=== PATIENT | male | born 1970 | race Caucasian/White ===

== ENCOUNTER 2019-07-30 19:15 | Emergency (ER) | payer SELFPAY | END 2019-07-30 19:17 | disposition left against medical advice (07) | LOC: ER 08-09 07:38 | PROVIDERS: Emergency Provider Physician Assistant; Family Provider Family Medicine; PCP Family Medicine | DX: R07.9 Chest pain, unspecified (principal); I16.0 Hypertensive urgency; E11.40 Type 2 diabetes mellitus with diabetic neuropathy, unspecified; E11.22 Type 2 diabetes mellitus with diabetic chronic kidney disease; N18.9 Chronic kidney disease, unspecified; E78.5 Hyperlipidemia, unspecified; Z53.21 Procedure and treatment not carried out due to patient leaving prior to being seen by health care provider | CPT/HCPCS: 99281 ==

== ENCOUNTER 2019-07-30 19:16 | Observation (INO) | payer SELFPAY ==
[2019-07-30 19:18] VITALS: BP 183/92; PULSE 92; RESP 16; TEMP 36.3; O2SAT 96; BMI 32.5
--- NOTE | 2019-07-30 19:21 | ED_ITS ---
Entered by Noemy Reina, acting as scribe for Brianna Nolen HPI - General Adult General: Chief complaint: Chest Pain Stated complaint: Hyperglycemia, Chest Pain Time Seen by Provider: 07/30/19 19:21 Source: patient and RN notes reviewed Mode of arrival: EMS Limitations: no limitations History of Present Illness: HPI narrative: 48 yo male presents to ED with complaints of high blood sugar and chest pain. The patient states he has been out of insulin for 1 week, because he has been in town visiting and he ran out. He said his chest pain and pressure began at noon today and has not let up all day. He said he woke feeling crappy this morning and has felt worse throughout the day. He was given Nitro on the ambulance and he began feeling a little better. The patient has a history of HTN, diabetes, chronic kidney disease and neuropathy in his legs. He said his PCP is Dr Villavicencio in [place]. MD complaint: high blood sugar Onset (ago): week(s) (1) Location: chest Radiation: non-radiation Severity: moderate Quality: aching Pain Consistency: intermittent Relieving factors: none Exacerbating factors: none Associated symptoms: Reports chest pain; Deny confusion, diaphoresis, dyspnea, headache(s), nausea, rash or vomiting Treatments prior to arrival: other (Nitro) Review of Systems General: Reports: other (negative unless marked) Const: Denies: fever, chills, body aches, fatigue or diaphoresis Eyes: Denies: change in vision or blurry vision ENMT: Denies: throat pain, painful swallowing, hoarseness, ear pain, ear discharge, Change in hearing or nasal discharge Card: Reports: chest pain Resp: Denies: shortness of breath, productive cough, non-productive cough, wheezing, coughing up blood or chest congestion GI: Denies: abdominal pain, nausea, vomiting, vomiting blood, coffee grounds in vomit, diarrhea, constipation, cramping, blood in stool or black tarry stool : Denies: flank pain, difficulty urinating, painful urination, urinary frequency, urinary urgency, decreased urine ouput, urinary incontinence or blood in urine Musc: Denies: neck pain, back pain, extremity pain, extremity swelling, joint pain, joint swelling, joint warmth or joint stiffness Skin/Breast: Denies: rash, skin tenderness or yellow skin Neuro: Denies: headache, weakness in extremities, changes in sensation, lack of coordination, difficulty walking, dizziness, vertigo or confusion Endo: Denies: excessive thirst, tired all the time, cold intolerance, excessive sweating, flushing or hot flashes Vern/Lymph: Denies: easy bruising, easy bleeding, petechiae or enlarged lymph nodes All/Imm: Denies: hives, throat swelling, tongue swelling, facial swelling or acute wheezing PFSH ED PFSH: Statuses (acute, chronic, etc) shown below reflect problem list status as previously entered and may not be historically accurate Social History Smoking and tobacco status: never smoked Physical Exam Const: COMMON NORMALS: no apparent distress, oriented x3, no limitations, healthy appearing and well nourished EXAM LIMITATIONS: no altered mental status GENERAL APPEARANCE: cooperative, well kempt and well developed ORIENTATION/CONSCIOUSNESS: Yes awake HENMT: COMMON NORMALS: normocephalic, head/scalp atraumatic, hearing grossly normal bilaterally, external ears normal, EAC's normal, external nose normal and moist oral mucous membranes HEAD & SCALP: normal to inspection, normocephalic and atraumatic FACE & SINUS: normal facial exam and face symmetric NOSE: external nose normal and nares normal EXTERNAL EAR: Yes external ears normal EXTERNAL AUDITORY CANAL: EAC's normal MOUTH: oral and palatal mucosa normal and tongue normal Eye: COMMON NORMALS: PERRL, EOMs intact bilaterally, conjunctivae normal and no scleral icterus GENERAL EYE: normal appearance of both eyes and normal light reflex CONJUNCTIVA: Yes conjunctivae normal SCLERA: sclerae normal CORNEA: Yes corneas normal PUPIL: Yes PERRL DIRECT OPHTHALMOSCOPY: Yes normal light reflex Neck/C-Spine: COMMON NORMALS: full ROM, no lymphadenopathy, supple, no meningeal signs and no JVD GENERAL: Yes normal visual inspection and Yes trachea midline CERVICAL SPINE: Yes cervical ROM normal Chest: COMMONS NORMALS: inspection of chest normal and palpation of chest normal Resp: COMMON NORMALS: normal respiratory effort, no retractions, no use of accessory muscles and clear to auscultation bilaterally EFFORT & INSPECTION: Yes able to speak in complete sentences AUSCULTATION: clear to auscultation bilaterally Cardio: COMMON NORMALS: no JVD, regular rate, regular rhythm, S1 normal heart sound, S2 normal heart sound, no gallops, no clicks, no murmurs and no rub JUGULAR VENOUS DISTENTION: no JVD RATE: regular rate RHYTHM: regular rhythm HEART SOUNDS: S1 normal and S2 normal GI: COMMON NORMALS: soft to palpation, non-tender, no hepatosplenomegaly and no masses INSPECTION: Yes normal to inspection PALPATION: Yes soft and Yes no hepatosplenomegaly : COMMON NORMALS: Yes no CVA tenderness BLADDER/KIDNEY EXAM: Yes no CVA tenderness Back/Pelvis: COMMON NORMALS: no CVA tenderness, thoracic and lumbar spine normal to inspection, no thoracic nor lumbar tenderness and thoraco-lumbar ROM normal Extremity: COMMON NORMALS: normal to inspection, full ROM, normal capillary refill, no joint enlargement, no clubbing, cyanosis or edema and no calf tenderness Neuro: COMMON NORMALS: oriented x3, CN's II-XII intact bilaterally, moves all extremities, no focal motor deficits and no sensory deficits noted MENINGEAL SIGNS: Yes no meningeal signs Psych: COMMON NORMALS: mental status grossly normal, thought process normal, cooperative, affect normal, speech normal and activity/motor behavior normal APPEARANCE: Yes well kempt SPEECH: Yes normal speech THOUGHT PROCESS: normal thought process Skin: COMMON NORMALS: no rashes or lesions noted, skin turgor normal, no jaundice, no petechiae and no mottling GENERAL SKIN EXAM: no rashes or lesions noted and turgor normal Course Vital Signs: Vital signs: Vital Signs Temperature 97.4 F L 07/30/19 19:18 Pulse Rate 92 07/30/19 19:18 Respiratory Rate 16 07/30/19 19:18 Blood Pressure 183/92 07/30/19 19:18 Pulse Oximetry 96 07/30/19 19:18 MDM - General Adult MDM Narrative: Medical decision making narrative: Nhan is a 48-year-old male who comes in complaining of chest pain. He is not been here to this hospital before. It is unclear what his baseline EKG, creatinine and troponin are. Because of his ongoing pain we will admit him here to the hospital. The case was reviewed with Dr. Prado and he is in agreement. Lab Data: Attestation: I reviewed the patient's lab results. Labs: Lab Results 07/30/19 07/30/19 07/30/19 Range/Units 19:55 19:55 19:55 WBC 7.8 (4.0-10.0) 10^3/ uL RBC 3.51 L (4.1-5.3) 10^6/u L Hgb 10.5 L (11.7-16.6) g/dL Hct 32.3 L (42.0-52.0) % MCV 92.0 (80-94) fL MCH 29.9 (28.0-34.0) pg MCHC 32.5 (30.0-36.0) g/dL RDW 12.3 (12.1-15.1) % Plt Count 235 (130-400) 10^3/c mm MPV 11.2 H (7.4-10.4) fL Neut % (Auto) 76.6 % Lymph % (Auto) 13.6 % [place] % (Auto) 7.9 % Eos % (Auto) 0.9 % Baso % (Auto) 0.5 % Neut # (Auto) 6.0 (1.8-7.7) 10^3/u L Lymph # (Auto) 1.1 (0.8-4.8) 10^3/u L [place] # (Auto) 0.6 (0.2-0.9) 10^3/u L Eos # (Auto) 0.1 (0.0-0.8) 10^3/u L Baso # (Auto) 0.0 (0.0-0.1) 10^3/u L Nucleated RBC % (a uto) 0 % Nucleated RBCs # 0.0 /100WBC Sodium (136-145) mmol/L Potassium (3.5-5.1) mmol/L Chloride (98-107) mmol/L Carbon Dioxide (22-29) mmol/L Anion Gap (5-19) BUN (6-20) mg/dL Creatinine (0.7-1.2) mg/dL GFR Calculation (90-130) mL/min Glucose (65-115) mg/dL Calcium (8.5-10.5) mg/dL Magnesium 1.9 (1.7-2.3) mg/dL Total Bilirubin (0.15-1.2) mg/dL AST (0-40) U/L ALT (0-41) U/L Alkaline Phosphata se (40-130) IU/L Creatine Kinase 44 (39-308) U/L Troponin T Baselin e (0-15) ng/mL Troponin T 120 Min [place] (0-15) ng/mL Delta Troponin T (0-10) ABS# Total Protein (6.6-8.7) g/dL Albumin (3.5-5.2) g/dL Globulin (1.3-4.6) g/dL Lipase 34 (13-60) U/L Serum Ketones Negative (Negative) 07/30/19 07/30/19 07/30/19 Range/Units 19:55 21:20 21:20 WBC (4.0-10.0) 10^3/ uL RBC (4.1-5.3) 10^6/u L Hgb (11.7-16.6) g/dL Hct (42.0-52.0) % MCV (80-94) fL MCH (28.0-34.0) pg MCHC (30.0-36.0) g/dL RDW (12.1-15.1) % Plt Count (130-400) 10^3/c mm MPV (7.4-10.4) fL Neut % (Auto) % Lymph % (Auto) % [place] % (Auto) % Eos % (Auto) % Baso % (Auto) % Neut # (Auto) (1.8-7.7) 10^3/u L Lymph # (Auto) (0.8-4.8) 10^3/u L [place] # (Auto) (0.2-0.9) 10^3/u L Eos # (Auto) (0.0-0.8) 10^3/u L Baso # (Auto) (0.0-0.1) 10^3/u L Nucleated RBC % (a uto) % Nucleated RBCs # /100WBC Sodium 128 L (136-145) mmol/L Potassium 4.2 (3.5-5.1) mmol/L Chloride 92 L (98-107) mmol/L Carbon Dioxide 25 (22-29) mmol/L Anion Gap 15.2 (5-19) BUN 29 H (6-20) mg/dL Creatinine 2.1 H (0.7-1.2) mg/dL GFR Calculation 33.6 L (90-130) mL/min Glucose 625 H* (65-115) mg/dL Calcium 8.8 (8.5-10.5) mg/dL Magnesium (1.7-2.3) mg/dL Total Bilirubin 0.2 (0.15-1.2) mg/dL AST 15 (0-40) U/L ALT 18 (0-41) U/L Alkaline Phosphata se 72 (40-130) IU/L Creatine Kinase (39-308) U/L Troponin T Baselin e 68 H (0-15) ng/mL Troponin T 120 Min [place] 71.28 H (0-15) ng/mL Delta Troponin T 3.28 (0-10) ABS# Total Protein 6.9 (6.6-8.7) g/dL Albumin 2.8 L (3.5-5.2) g/dL Globulin 4.1 (1.3-4.6) g/dL Lipase (13-60) U/L Serum Ketones (Negative) Imaging Data^: CXR: Attestation: I personally reviewed and interpreted this imaging study as follows: My impression: No acute cardiopulmonary findings. EKG Data^: EKG 1: EKG interpretation date: 07/30/19 EKG interpretation time: 19:22 Interpretation: Normal sinus rhythm at 86 beats a minute, LVH, T wave inversion in aVL, no other acute ST or T wave findings. EKG 2: EKG interpretation date: 07/30/19 EKG interpretation time: 21:28 Interpretation: Normal sinus rhythm at 80 beats a minute, T wave inversions in aVL, no acute ST or T wave findings. Discharge Plan Discharge Patient Disposition: Placed in Observation Clinical Impression: Chest pain Condition: Stable Referrals: Luisito Rothman MD [Primary Care Provider] - Coding Level of Care Code ED Receiving Worker for Chg Fwd Exam Problem Focused The documentation recorded by the Nuno wallace Valerie R, accurately reflects the service I personally performed and the decisions made by Callum calloway Eli N Jul 30, 2019 19:16
--- NOTE | 2019-07-30 19:25 | XR_ITS ---
WS: [id number] CHEST XRAY TECHNIQUE: Portable chest. CLINICAL INFORMATION: cough COMPARISON: None. FINDINGS: Heart: Cardiomegaly. Lungs: Mild chronic emphysematous changes. No acute pulmonary infiltrates. Bones: Normal visualized bony structures. XR/XR chest 1V portable [id number] IMPRESSION: Cardiomegaly. No acute chest findings.
--- NOTE | 2019-07-30 19:27 | ECG_ITS ---
Measurements Intervals [place] Rate: 86 P: 44 PA: 167 QRS: 6 QRSD: 105 T: 92 QT: 356 QTc: [address] & T-WAVE ABNORMALITY No previous ECG available for comparison Electronically Signed On 07-31-2019 9:27:47 INSURANCE EXAMINER by Boy Blood M.D. [id number]
[2019-07-30] MEDS: aspirin 325 mg Tablet PO (19:40)
[2019-07-30 20:11] LABS: Basophils % 0.5 %; Eosinophils # 0.1 10^3/uL (0.0-0.8); Eosinophils % 0.9 %; Hematocrit 32.3 % (42.0-52.0); Hemoglobin 10.5 g/dL (11.7-16.6); Lymphocytes # 1.1 10^3/uL (0.8-4.8); Lymphocytes % 13.6 %; Mean Corpuscular HGB Conc 32.5 g/dL (30.0-36.0); Mean Corpuscular Hemoglobin 29.9 pg (28.0-34.0); Mean Platelet Volume 11.2 fL (7.4-10.4); Monocytes # 0.6 10^3/uL (0.2-0.9); Monocytes % 7.9 %; Neutrophils % 76.6 %; Nucleated Red Blood Cells % 0 %; Platelet Count 235 10^3/cmm (130-400); Red Blood Count 3.51 10^6/uL (4.1-5.3); Red Cell Distribution Width 12.3 % (12.1-15.1); White Blood Count 7.8 10^3/uL (4.0-10.0)
[2019-07-30 20:28] LABS: Ketone (Acetest) Serum Negative (Negative)
[2019-07-30 20:30] LABS: Creatine Phosphokinase 44 U/L (39-308); Lipase 34 U/L (13-60); Magnesium 1.9 mg/dL (1.7-2.3); Troponin(5th) Baseline 68 ng/mL (0-15)
[2019-07-30] MEDS: nitroglycerin 1 gm/inch oint Pkt 1 INCH TOPICAL (20:44)
--- NOTE | 2019-07-30 21:27 | ECG_ITS ---
Measurements Intervals [place] Rate: 80 P: 39 VT: 183 QRS: -3 QRSD: 104 T: 86 QT: 365 QTc: 422 SINUS RHYTHM MODERATE VOLTAGE CRITERIA FOR LVH, CONSIDER NORMAL VARIANT [MEETS CRITERIA IN ONE OF: R(aVL), S(V1), R(V5), R(V5/V6)+S(V1)] NONSPECIFIC T-WAVE ABNORMALITY No previous ECG available for comparison Electronically Signed On 07-31-2019 9:30:21 APPLICATIONS MANAGER by Boy Blood M.D. [id number]
[2019-07-30 21:55] LABS: Troponin 5 2HR 71.28 ng/mL (0-15); Troponin 5 2HR Delta 3.28 ABS# (0-10)
[2019-07-30 22:13] LABS: Alanine Aminotransferase 18 U/L (0-41); Albumin Level 2.8 g/dL (3.5-5.2); Alkaline Phosphatase 72 IU/L (40-130); Anion Gap 15.2 (5-19); Aspartate Amino Transferase 15 U/L (0-40); Blood Urea Nitrogen 29 mg/dL (6-20); Calcium 8.8 mg/dL (8.5-10.5); Carbon Dioxide 25 mmol/L (22-29); Chloride 92 mmol/L (98-107); Globulin 4.1 g/dL (1.3-4.6); Glomerular Filtration Rate 33.6 mL/min (90-130); Potassium 4.2 mmol/L (3.5-5.1); Sodium 128 mmol/L (136-145); Total Bilirubin 0.2 mg/dL (0.15-1.2); Total Protein 6.9 g/dL (6.6-8.7)
[2019-07-30 22:14] LABS: Glucose 625 mg/dL (65-115)
[2019-07-30 23:09] LABS: Glucose Point of Care 465 mg/dL (70-110)
[2019-07-30] MEDS: insulin nph human 100 units/1 mL 15 UNIT SUBCUT (23:23)
--- NOTE | 2019-07-30 23:23 | PM.HP ---
Providers/Chief Complaint Primary Care Provider: Lázaro Rothman Chief Complaint: Hyperglycemia, Chest Pain History of Present Illness Nhan Villalba is a 48 year old male with a past medical history of hypertension, insulin-dependent type 2 diabetes mellitus, diabetic peripheral neuropathy, chronic back pain with sciatica who presents to the emergency room due to chest pain, elevated blood sugars and elevated blood pressures. Patient states that he recently moved to [facility] from [facility], he states that he has been out of his medications for the past week, currently living with friends, currently unemployed, he is working on his Medicaid for disability. Patient states that this morning he had episodes of substernal chest pain, lasting a few minutes, pressure-like, radiating to his back, associate with shortness of breath, no lightheadedness, no dizziness, no nausea, no vomiting, no diaphoresis, has a history of chest pain in the past, has not seen his physician about this, has never had a stress test, no history of CAD or coronary intervention, no history of CABG, does have family history of CAD in his mother and father. Patient states that he does not have any money to pay for his diabetic supplies, has not taken his Lantus and Novolin for the past week. In addition patient states that he is not taking his blood pressure medications for a week. Review of Systems Const: Denies: fever, chills, fatigue or malaise Eyes: Denies: change in vision or blurry vision ENMT: Denies: nasal congestion Card: Reports: chest pain; Denies: palpitations Resp: Denies: shortness of breath, productive cough, non-productive cough or wheezing GI: Denies: abdominal pain, nausea, vomiting, vomiting blood, diarrhea, constipation, blood in stool or black tarry stool : Denies: flank pain, difficulty urinating, painful urination or urinary frequency Musc: Denies: neck pain or back pain Skin/Breast: Denies: rash Neuro: Denies: headache, dizziness or vertigo Psych: Denies: anxiety or depression Endo: Denies: excessive urination or excessive thirst Medications/Allergies Home Medications Medication Instructions Recorded Confirmed Last Taken Type Lantus U-100 Insulin 07/30/19 Unknown History gabapentin PO TID 07/30/19 Unknown History hydrocodone-acetaminophen PO 6XD PRN 07/30/19 Unknown History insulin lispro [Humalog KwikPen unit SUBCUT 07/30/19 Unknown History Insulin] lisinopril PO DAILY 07/30/19 Unknown History Additional Medication Information Additional Medication Information: Lantus 35 units in the morning, 30 units at night Novolin sliding scale Lisinopril 10 mg once daily Glipizide 10 mg once daily Gabapentin 800 3 times daily [place] 10/26/2024 every 4 as needed PFSH Acute PFSH: Statuses (acute, chronic, etc) shown below reflect problem list status as previously entered and may not be historically accurate Medical History (Updated 07/30/19 @ 23:32 by Kvng Prado MD) Type 2 diabetes mellitus (Acute) Surgical History (Updated 07/30/19 @ 23:31 by Kvng Prado MD) Hx of cholecystectomy (Acute) Family History (Updated 07/30/19 @ 23:31 by Kvng Prado MD) Mother CAD (coronary artery disease) Father CAD (coronary artery disease) Social History (Updated 07/30/19 @ 23:31 by Kvng Prado MD) Smoking and tobacco status: never smoked Alcohol intake: never Substance/Drug Use: never Vitals/I&O/Wt Last Vital Signs Temp 97.4 F L 07/30/19 19:18 Pulse 92 07/30/19 19:18 Resp 16 07/30/19 19:18 BP 183/92 07/30/19 19:18 Pulse Ox 96 07/30/19 19:18 Weight last 48 hrs Weight 108.862 kg Physical Exam Const: COMMON NORMALS: no apparent distress and oriented x3 GENERAL APPEARANCE: cooperative and comfortable HENMT: COMMON NORMALS: normocephalic HEAD & SCALP: normocephalic Eye: COMMON NORMALS: PERRL, EOMs intact bilaterally and no papilledema GENERAL EYE: normal appearance of both eyes PUPIL: Yes PERRL DIRECT OPHTHALMOSCOPY: Yes no papilledema Neck/C-Spine: COMMON NORMALS: full ROM, no lymphadenopathy, no JVD and thyroid normal THYROID: thyroid normal Lymph: LYMPHATIC: no lymphadenopathy noted Resp: COMMON NORMALS: normal respiratory effort, no retractions, no use of accessory muscles and clear to auscultation bilaterally AUSCULTATION: clear to auscultation bilaterally Cardio: COMMON NORMALS: no JVD, regular rate, regular rhythm, S1 normal heart sound, S2 normal heart sound, no gallops, no clicks and no murmurs RATE: regular rate RHYTHM: regular rhythm HEART SOUNDS: S1 normal and S2 normal GI: COMMON NORMALS: normal to inspection, nondistended, normoactive bowel sounds, soft to palpation, non-tender and no hepatosplenomegaly PALPATION: Yes soft and Yes no hepatosplenomegaly Extremity: COMMON NORMALS: normal to inspection, full ROM and no pedal edema Neuro: COMMON NORMALS: oriented x3, CN's II-XII intact bilaterally, moves all extremities and no focal motor deficits Psych: COMMON NORMALS: mental status grossly normal, thought process normal and cooperative THOUGHT PROCESS: normal thought process Data : 07/30/19 19:55 07/30/19 21:20 A&P Assessment and plan (1) Chest pain: -EKG no significant ST-T wave changes -No active chest pain -Baseline troponin 60, 120 minutes 71.28, delta of 3.28 -Family history of CAD Plan -ACS protocol aspirin, statin, nitro, Coreg -Trend troponins, serial EKGs -N.p.o. midnight, stress test tomorrow morning -Telemetry monitoring Status: Acute Qualifiers: Chest pain type: precordial pain Qualified Code(s): R07.2 - Precordial pain Code(s): R07.9 - Chest pain, unspecified (2) Type 2 diabetes mellitus: -Consult case management for affordability of medications -Start Levemir 30 units twice daily -Moderate dose sliding scale Status: Acute Code(s): E11.9 - Type 2 diabetes mellitus without complications (3) Hypertensive urgency: Lisinopril 20 mg once daily Coreg PRN labetalol Status: Acute Code(s): I16.0 - Hypertensive urgency (4) Diabetic peripheral neuropathy: Gabapentin Patient states that he is weak, has bilateral extremity pain, neuropathy, PT OT Status: Acute Code(s): E11.42 - Type 2 diabetes mellitus with diabetic polyneuropathy Attestations Medical Necessity Statement*: Patient requires hospitalization, outpatient with observation, for chest pain, hypertensive urgency, hyperglycemia Coding Level of Care Code Acute Appliance Repairer for [facility] Diagnoses Chest pain R07.2 Chest pain type: precordial pain Type 2 diabetes mellitus E11.9 Hypertensive urgency I16.0 Diabetic peripheral neuropathy E11.42
[2019-07-30 23:45] VITALS: BP 151/89; PULSE 82; RESP 16; TEMP 36.9; O2SAT 97
--- NOTE | 2019-07-30 23:48 | ECG_ITS ---
NAME OF STUDY: LEXISCAN SESTAMIBI STRESS TEST INDICATION: Chest Pain; Chest Pain LEXISCAN STRESS TEST ORDERING PHYSICIAN: Kevin CLINICAL INFORMATION: Chest pain INTERPRETATION: 1. The patient was brought to the laboratory where Lexiscan was infused over 20 seconds. The resting blood pressure was 84/51. Maximum blood pressure was 132/68. The resting heart rate was 77 beats per minute. The maximum heart rate is 83 beats per minute. 2. The baseline electrocardiogram reveals sinus rhythm with left ventricular hypertrophy and left atrial abnormality, otherwise normal 3. With Lexiscan infusion, there were no ST segment changes to suggest ischemia. 4. The patient experienced no symptoms or arrhythmias during the examination. CONCLUSION: 1. Unremarkable Lexiscan infusion. 2. Nuclear imaging to follow. Electronically Signed On 07-31-2019 16:51:50 DRIVER WHEELCHAIR by Boy Blood M.D. [id number]
[2019-07-31] VITALS (9 sets, daily range): BP systolic 108–180; BP diastolic 52–102; PULSE 74–85; RESP 10–17; TEMP 36.4–36.8; O2SAT 93–97
--- NOTE | 2019-07-31 | PC.NURSE ---
late entry: Received patient from the ER via stretcher, patient is alert and oriented at this time. Patient denies pain. Oriented patient to the call light system and hospital/room environment. Admission assessment completed per flow sheet, patient declines and refuses use SCD's, teaching provided to patient regarding the importance of SCD's , understanding verbalized. Call light within reach, No needs voiced at this time. Care continued.
[2019-07-31 00:22] LABS: Thyroid Stimulating Hormone 1.35 uIU/mL (0.27-4.20)
[2019-07-31] MEDS: HYDROcodone-acetaminophen 5-325 mg Tablet 1 TAB PO ×4 (00:41→22:43)
[2019-07-31] MEDS: atorvastatin 40 mg Tablet PO ×2 (00:42→08:08)
[2019-07-31] MEDS: dextrose 5%-sod chloride 0.45% 1,000 ML 75 ML IV (00:42)
[2019-07-31] MEDS: enoxaparin 40 mg/0.4 mL Syringe SUBCUT (01:24)
--- NOTE | 2019-07-31 01:27 | ECG_ITS ---
Measurements Intervals [place] Rate: 84 P: 31 IL: 173 QRS: -6 QRSD: 112 T: 91 QT: 375 QTc: 444 SINUS RHYTHM LEFT VENTRICULAR HYPERTROPHY AND ST-T CHANGE [VOLTAGE CRITERIA PLUS ST/T AB ABNORMALITY] No previous ECG available for comparison Electronically Signed On 07-31-2019 9:30:26 WELL DRILLER HELPER by Boy Blood M.D. [id number]
[2019-07-31 01:29] LABS: Basophils % 0.4 %; Eosinophils # 0.2 10^3/uL (0.0-0.8); Eosinophils % 2.2 %; Hematocrit 28.9 % (42.0-52.0); Hemoglobin 9.8 g/dL (11.7-16.6); Lymphocytes # 1.6 10^3/uL (0.8-4.8); Lymphocytes % 23.3 %; Mean Corpuscular HGB Conc 33.9 g/dL (30.0-36.0); Mean Corpuscular Hemoglobin 29.1 pg (28.0-34.0); Mean Corpuscular Volume 85.8 fL (80-94); Mean Platelet Volume 10.7 fL (7.4-10.4); Monocytes # 0.7 10^3/uL (0.2-0.9); Monocytes % 9.5 %; Neutrophils # 4.4 10^3/uL (1.8-7.7); Neutrophils % 64.2 %; Nucleated Red Blood Cells % 0 %; Platelet Count 221 10^3/cmm (130-400); Red Blood Count 3.37 10^6/uL (4.1-5.3); Red Cell Distribution Width 12.1 % (12.1-15.1); White Blood Count 6.9 10^3/uL (4.0-10.0)
[2019-07-31 01:45] LABS: Estmated Average Glucose 346; Hemoglobin A1C 13.7 % (4.0-6.0)
[2019-07-31] MEDS: enoxaparin 80 mg/0.8 mL Syringe 70 MG SUBCUT (02:53)
[2019-07-31 02:59] LABS: Chol HDL Ratio 6.38 mg/dL (1.0-5.00); Cholesterol 185 mg/dL (0-200); HDL Cholesterol 29 mg/dL (60-100); LDL Cholesterol Calculated 113 mg/dL (50-129); Triglycerides 214 mg/dL (0-150)
[2019-07-31 03:18] LABS: Alanine Aminotransferase 17 U/L (0-41); Albumin Level 2.6 g/dL (3.5-5.2); Alkaline Phosphatase 64 IU/L (40-130); Anion Gap 15.8 (5-19); Aspartate Amino Transferase 17 U/L (0-40); Blood Urea Nitrogen 19 mg/dL (6-20); Calcium 9.1 mg/dL (8.5-10.5); Carbon Dioxide 26 mmol/L (22-29); Chloride 98 mmol/L (98-107); Globulin 3.9 g/dL (1.3-4.6); Glomerular Filtration Rate 35.5 mL/min (90-130); Magnesium 1.8 mg/dL (1.7-2.3); Phosphorus 2.7 mg/dL (2.5-4.5); Potassium 3.8 mmol/L (3.5-5.1); Sodium 136 mmol/L (136-145); Total Bilirubin 0.2 mg/dL (0.15-1.2); Total Protein 6.5 g/dL (6.6-8.7)
--- NOTE | 2019-07-31 06:30 | PC.NURSE ---
checked with patient and patient states, I had a diet coke in the ER Patient will need to refrain from caffeine till 12noon or until stress test is done, no caffeine intake since 0000 07/31/19 Call light within reach. Care continued.
--- NOTE | 2019-07-31 06:36 | SUR.PREOP ---
Last caffeine intake around midnight last night. Has to be fasting from all forms of caffeine for 12 hours according to lexiscan guidelines for accuracy of test. Nuclear medicine aware. Plan to stress the patient after noon today.
[2019-07-31 06:42] LABS: Glucose Point of Care 217 mg/dL (70-110)
--- NOTE | 2019-07-31 07:59 | PC.NURSE ---
notified physician, Dr. Brown regarding the patient consuming caffeine prior to 0000 on 07/31/19, no new orders received.
[2019-07-31] MEDS: lisinopril 20 mg Tablet PO (08:09)
[2019-07-31] MEDS: gabapentin 400 mg Capsule 800 MG PO ×3 (08:09→21:11)
[2019-07-31] MEDS: carvedilol 3.125 mg Tablet PO (08:09)
[2019-07-31] MEDS: aspirin 81 mg EC Tablet PO (08:09)
--- NOTE | 2019-07-31 08:56 | PC.OT ---
OT EVALUATION ATTEMPTED. PATIENT IS VERY TIRED DUE TO LATE ADMIT. NURSING RECOMMENDS HOLD UNTIL P.M.
[2019-07-31 09:12] LABS: Glucose 123 mg/dL (65-115)
--- NOTE | 2019-07-31 10:56 | PC.CHAP ---
Pastoral Care Encounter/Spiritual Assessment Type of Contact [] Declined supervisor research kennel visit [] Patient/Family/Request visit [] Outpatient visit [] Follow-up visit [] Physician referral [] Code/Alert [x] Routine visit [] Staff referral [] Actively dying [x] Patient sleeping [] Family support [] [] Out of room [] Palliative care [] [] Receiving care in room [] Pre-surgical visit [] Trauma [] Long length of stay [] ICU visit [] Other: Relational/Emotional Strength [] Patient feels connected with others/family/visitors/staff [] Distress [] Loneliness/isolation [] Abandonment Spirituality of Patient [] Person of Gunjan [] Attends Tenriism of their [place] [] Believes in Prayer [] Reads Bible or Sikhism materials [] There are Spiritual issues to be addressed Grounds Manager Interventions [] Prayer [] Active listening [] Non-anxious presence [] Spiritual/emotional support [] Crisis/trauma care [] Spiritual counseling [] Bereavement support [] Provided bereavement packet [] Provided Bible/devotional materials [] Provided toy/stuffed animal, coloring book to patient or family member [] Provided Communion [] Anointing/[place] [] Salvation [] Completed spiritual assessment [] Other: Impact on Illness or Injury [] Angry [] Fearful [] Anxious [] Often cries [] Exhaustion [] Unable to work [] Unable to attend catholic [] Unable to walk/stand [] Unable to read [] Unable to drive [] Unable to eat/drink [] Unable to sleep [] Unable to be with family [] Patient intubated [] Other: Summary Time spent with patient
--- NOTE | 2019-07-31 11:00 | PM.PN ---
Subjective Subjective: Interval history: Patient denies chest pain or shortness of breath but reports back pain, thoracic and low back which is chronic. Patient reports that he lost his insurance and was unable to afford medications. Apparently patient's stress test was postponed because he had caffeinated drink at 1230 to 1:00 this morning Vitals/I&O/Wt Last Vital Signs Temp 97.9 F 07/31/19 07:29 Pulse 80 07/31/19 07:29 Resp 16 07/31/19 07:29 BP 177/94 07/31/19 07:29 Pulse Ox 93 07/31/19 07:29 07/30/19 07/31/19 07/31/19 22:59 06:59 14:59 Intake Total 100 / 100 240 / 240 Balance 100 / 100 240 / 240 Weight last 48 hrs Weight 108.862 kg Physical Exam Const: COMMON NORMALS: no apparent distress and oriented x3 Resp: COMMON NORMALS: normal respiratory effort and clear to auscultation bilaterally AUSCULTATION: clear to auscultation bilaterally Cardio: COMMON NORMALS: regular rate, regular rhythm and S2 normal heart sound RATE: regular rate RHYTHM: regular rhythm HEART SOUNDS: S2 normal OTHER: No lower extremity edema GI: COMMON NORMALS: normal to inspection, nondistended, normoactive bowel sounds, soft to palpation and non-tender PALPATION: Yes soft Neuro: COMMON NORMALS: oriented x3 and no focal motor deficits Data : 07/31/19 01:20 07/31/19 01:20 A&P Assessment and plan (1) Chest pain: -EKG no significant ST-T wave changes -No active chest pain -Baseline troponin 60, 120 minutes 71.28, delta of 3.28 -Family history of CAD Plan -ACS protocol aspirin, statin, nitro, Coreg -Trend troponins, serial EKGs -N.p.o. midnight, stress test tomorrow morning -Telemetry monitoring Status: Acute Qualifiers: Chest pain type: precordial pain Qualified Code(s): R07.2 - Precordial pain Code(s): R07.9 - Chest pain, unspecified (2) Type 2 diabetes mellitus: -Consult case management for affordability of medications -Start Levemir 30 units twice daily -Moderate dose sliding scale Status: Acute Code(s): E11.9 - Type 2 diabetes mellitus without complications (3) Hypertensive urgency: Lisinopril 20 mg once daily Coreg PRN labetalol Status: Acute Code(s): I16.0 - Hypertensive urgency (4) Diabetic peripheral neuropathy: Gabapentin Patient states that he is weak, has bilateral extremity pain, neuropathy, PT OT Status: Acute Code(s): E11.42 - Type 2 diabetes mellitus with diabetic polyneuropathy Additional A&P Information Discussed case with social workers who will see patient to assist with medications. As patient continues to have elevated blood pressure will start on Imdur and increase Coreg to 6.25 twice daily. Discussed with Dr. Blood who will see patient in consultation as he may require further evaluation with cath. Dr. Blood wants to continue with stress test for now. Attestations Medical Necessity Statement*: Patient with significant risk factors presents with chest pain requiring close inpatient monitoring treatment and evaluation. 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
[2019-07-31 11:28] LABS: Glucose Point of Care 286 mg/dL (70-110)
--- NOTE | 2019-07-31 11:36 | P.CONIM_ITS ---
Providers/Reason For Consult Consulting Physican/Specialty*: Cardiovascular diseases Reason for Consult*: Chest pain, abnormal troponin Attending Physician: Marquis Brown MD Primary Care Provider: Lázaro Rothman History of Present Illness History of Present Illness Nhan Villalba is a 48 year old male who is noncompliant. He has a number of risk factors for heart disease primarily diabetes, hypertension and dyslipidemia. He apparently moved here recently from somewhere near [place]. He has not taken his medicines for at least a week. He came to the emergency room by ambulance with chest pain. This is a fairly atypical pain described as a pain in his chest that goes through to his back. He describes shortness of breath but no other symptoms. The pain lasted for several minutes. Upon his arrival he was hypertensive blood pressure 183/92. His blood sugar was 625. His troponin is minimally elevated as it pertains to the delta. He was scheduled for stress test but last night had a caffeinated beverage and so it has been delayed. Currently he is in the nuclear medicine lab getting his resting pictures. Patient is free of pain at this point. Review of Systems General: Reports: 10 or more systems reviewed and unremarkable except in HPI and below Meds/Allergies Home Medications and Allergies Home Medications Medication Instructions Recorded Confirmed Type Lantus U-100 Insulin 35 unit SUBCUT DAILY 07/30/19 07/30/19 History gabapentin 800 mg PO TID 07/30/19 07/30/19 History hydrocodone-acetaminophen 1 - 2 tab PO 6XD PRN 07/30/19 07/30/19 History insulin lispro [Humalog KwikPen 1 unit SUBCUT TID 07/30/19 07/30/19 History Insulin] lisinopril 10 mg PO DAILY 07/30/19 07/30/19 History Allergies Allergy/AdvReac Type Severity Reaction Status Date / Time metformin Allergy ADR-Abdominal Verified 07/30/19 23:47 Pain Current Medications Current Medications Generic Name Dose Route Start Last Admin Trade Name Freq PRN Reason Stop Dose Admin Hydrocodone Bitart/Acetaminophen 1 tab 07/30/19 23:48 07/31/19 08:11 [place] 5-325 Mg PO 1 tab Q6H PRN Administration pain Aspirin 81 mg 07/31/19 09:00 07/31/19 08:09 Aspirin Ec PO 81 mg DAILY BOO Administration Atorvastatin Calcium 40 mg 07/30/19 23:48 07/31/19 08:08 Lipitor PO 40 mg DAILY BOO Administration Enoxaparin Sodium 110 mg 07/31/19 02:00 07/31/19 02:14 Lovenox SUBCUT Not Given Q12H BOO Gabapentin 800 mg 07/31/19 09:00 07/31/19 08:09 Neurontin PO 800 mg TID BOO Administration Dextrose/Sodium Chloride 1,000 mls @ 75 mls/hr 07/30/19 23:48 07/31/19 00:42 Dextrose 5%-Sod Chloride 0.45% IV 75 mls/hr .[id number] BOO Administration Insulin Aspart 0 unit 07/31/19 08:00 07/31/19 08:06 Novolog SUBCUT 6 unit TIDWM BOO Administration Protocol Insulin Detemir 30 unit 07/31/19 09:00 07/31/19 08:29 Levemir SUBCUT 30 unit BID BOO Administration Lisinopril 20 mg 07/31/19 09:00 07/31/19 08:09 Prinivil PO 20 mg DAILY BOO Administration PFSH Acute PFSH: Statuses (acute, chronic, etc) shown below reflect problem list status as previously entered and may not be historically accurate Medical History (Updated 07/31/19 @ 11:42 by Boy Blood MD) Anemia (Acute) Chronic back pain (Acute) Dyslipidemia (Acute) Noncompliance (Acute) Type 2 diabetes mellitus (Acute) Surgical History (Updated 07/30/19 @ 23:31 by Kvng Prado MD) Hx of cholecystectomy (Acute) Family History (Updated 07/30/19 @ 23:31 by Kvng Prado MD) Mother CAD (coronary artery disease) Father CAD (coronary artery disease) Social History (Updated 07/31/19 @ 11:42 by Boy Blood MD) Smoking and tobacco status: never smoked Alcohol intake: never Substance/Drug Use: never Current occupational status: unemployed Additional social history: Patient is making an attempt to get disability. Vitals/I&O/Wt Last Vital Signs Temp 97.8 F 07/31/19 11:11 Pulse 76 07/31/19 11:11 Resp 17 07/31/19 11:11 BP 133/72 07/31/19 11:11 Pulse Ox 96 07/31/19 11:11 0207/31/19 07/31/19 22:59 06:59 14:59 Intake Total 100 / 100 240 / 240 Balance 100 / 100 240 / 240 Weight last 48 hrs Weight 240 lb Physical Exam Narrative: EXAM NARRATIVE: GENERAL: Comfortable at rest HEENT: Exam within normal limits. NECK: Supple without jugular vein distention. The carotid upstroke is normal without bruits. BACK: Exam normal. LUNGS: Clear. HEART: Regular rate and rhythm. ABDOMEN: Benign without organomegaly or tenderness. EXTREMITIES: No edema. NEUROLOGIC: Exam normal. SKIN: Unremarkable. Data Other Data: Other data: First troponin 68. Second troponin 80.6. Third troponin 71.2 8. EKG reveals sinus rhythm with nonspecific ST and T wave changes in leads I and L. There is LVH. The chest x-ray is unremarkable. A&P Assessment and plan (1) Dyslipidemia: Status: Acute Code(s): E78.5 - Hyperlipidemia, unspecified (2) Diabetic peripheral neuropathy: Status: Acute Code(s): E11.42 - Type 2 diabetes mellitus with diabetic polyneuropathy (3) Hypertensive urgency: Status: Acute Code(s): I16.0 - Hypertensive urgency (4) Type 2 diabetes mellitus: Status: Acute Code(s): E11.9 - Type 2 diabetes mellitus without complications (5) Chest pain: Status: Acute Qualifiers: Chest pain type: precordial pain Qualified Code(s): R07.2 - Precordial pain Code(s): R07.9 - Chest pain, unspecified Additional A&P Information I do not see anything on the EKG that leads me to believe this is unstable. It is difficult to tell whether these troponins are truly insurance verification representative of unstable angina or an acute ischemic syndrome. Chest pain is not typical. He does have risk factors however. I think we need to complete the stress test to stratify his risk and then proceed from that point forward. I have spoken to nuclear medicine and they will get the stress portion this afternoon. Consult Attestations Medical Necessity Statement: Not applicable Time Spent in Patient Care: Greater than 35 minutes Coding Level of Care Code Acute Patient Svcs Mgr for [facility] Fwd History Detailed Exam Detailed Medical Decision Making Moderate Complexity Diagnoses Dyslipidemia E78.5 Diabetic peripheral neuropathy E11.42 Hypertensive urgency I16.0 Type 2 diabetes mellitus E11.9 Chest pain R07.2 Chest pain type: precordial pain Time Spent (min) 45
[2019-07-31] MEDS: isosorbide mononitrate ER 30 mg Tablet PO (12:12)
--- NOTE | 2019-07-31 13:30 | SUR.PREOP ---
Patient reports no pain or discomfort prior to the start of the procedure.
[2019-07-31] MEDS: regadenoson 0.4 Mg/5 ml Syringe IVP (13:35)
[2019-07-31] MEDS: aminophylline 25 mg/mL SDV 10 mL IVP (13:37)
--- NOTE | 2019-07-31 13:45 | PC.OT ---
OT EVALUATION ATTEMPTED THIS A.M. HOWEVER, NURSING STATES THAT PATIENT IS VERY TIRED DUE TO LATE ADMIT AND REQUESTS P.M. EVALUATION. OT EVALUATION ATTEMPTED THIS P.M. HOWEVER, PATIENT IS CURRENTLY AT STRESS TEST. WILL ATTEMPT AGAIN TOMORROW.
[2019-07-31] MEDS: enoxaparin 120 mg/0.8 mL Syringe 110 MG SUBCUT (15:31)
[2019-07-31 16:41] LABS: Glucose Point of Care 181 mg/dL (70-110)
[2019-07-31 20:49] LABS: Glucose Point of Care 254 mg/dL (70-110)
[2019-07-31] MEDS: carvedilol 6.25 mg Tablet PO (21:12)
--- NOTE | 2019-07-31 23:48 | NMCV_ITS ---
NM solomon perf SPECT r/s* [id number] Nhan Villalba Age: 48 Gender: M : 1970 Exam Date: 07/31/2019 11:13 Ordering Phys: Kvng Prado MD Technologist: BUZZ Razo Exam Location: [facility] Indications: Chest pain STRESS TEST Please see separate stress test report in [facility] for full findings IMAGE PROTOCOL Rest/Stress 1 Lexiscan Day Radiopharmaceutical Dose (mCi) Administration Site Administered by Rest: Tc-99m 10.8 IV BUZZ Razo Sestamibi Stress:Tc-99m 33.0 IV BUZZ Razo Sestamibi Rest: 31-Jul-2019 60 Discovery 630 Stress: 31-Jul-2019 45 Discovery 630 0.4mg Lexiscan. Images obtained in supine and prone position. SPECT RESULTS Technical Quality: Good Raw Data Analysis: Normal Image Corrections: Patient motion artifact - motion correction applied stress supine only Summed Stress Score: 0 Summed Rest Score: 0 Summed Difference Score: 0 PERFUSION FINDINGS Small area of persistently decreased tracer uptake noted in basal to mid inferior wall which may represent old myocardial infarction versus artifact. FUNCTIONAL RESULTS (calculated via Gated SPECT) Stress Image LV EF (%): 27 Stress EDV (mL):128 TID: 0.86 Stress ESV (mL):93 Rest Image LV EF (%): 27 FUNCTIONAL FINDINGS: Global hypokinesis IMPRESSIONS Small area of old myocardial infarction versus artifact noted in basal to mid inferior wall. This study is negative for ischemia. EKG segment will be document separately. Cecilio Garner MD (Electronically Signed) Final Date: 31 July 2019 15:14 S
[2019-08-01] VITALS (54 sets, daily range): BP systolic 105–156; BP diastolic 58–76; PULSE 66–86; RESP 9–19; TEMP 36.6–36.8; O2SAT 95–98
[2019-08-01] MEDS: enoxaparin 120 mg/0.8 mL Syringe 110 MG SUBCUT (02:28)
[2019-08-01 03:48] LABS: Basophils % 0.3 %; Eosinophils # 0.2 10^3/uL (0.0-0.8); Hematocrit 29.8 % (42.0-52.0); Hemoglobin 9.8 g/dL (11.7-16.6); Lymphocytes # 1.8 10^3/uL (0.8-4.8); Mean Corpuscular HGB Conc 32.9 g/dL (30.0-36.0); Mean Corpuscular Volume 91.1 fL (80-94); Monocytes # 0.5 10^3/uL (0.2-0.9); Monocytes % 8.1 %; Neutrophils # 3.5 10^3/uL (1.8-7.7); Neutrophils % 58.1 %; Nucleated Red Blood Cells % 0 %; Platelet Count 196 10^3/cmm (130-400); Red Blood Count 3.27 10^6/uL (4.1-5.3); Red Cell Distribution Width 12.3 % (12.1-15.1); White Blood Count 6.1 10^3/uL (4.0-10.0)
[2019-08-01 04:08] LABS: Alanine Aminotransferase 15 U/L (0-41); Albumin Level 2.5 g/dL (3.5-5.2); Alkaline Phosphatase 56 IU/L (40-130); Anion Gap 9.9 (5-19); Aspartate Amino Transferase 17 U/L (0-40); Blood Urea Nitrogen 21 mg/dL (6-20); Calcium 8.6 mg/dL (8.5-10.5); Carbon Dioxide 28 mmol/L (22-29); Chloride 99 mmol/L (98-107); Globulin 3.4 g/dL (1.3-4.6); Glomerular Filtration Rate 33.6 mL/min (90-130); Glucose 242 mg/dL (65-115); Magnesium 1.9 mg/dL (1.7-2.3); Potassium 3.9 mmol/L (3.5-5.1); Sodium 133 mmol/L (136-145); Total Bilirubin 0.2 mg/dL (0.15-1.2); Total Protein 5.9 g/dL (6.6-8.7)
[2019-08-01 06:31] LABS: Glucose Point of Care 175 mg/dL (70-110)
--- NOTE | 2019-08-01 06:54 | P.PN_ITS ---
Subjective Subjective: Interval history: Nhan has had an uneventful night. He told me today that he still lives south of [place] and has not moved over here. He was here visiting. His stress test showed no ischemia. His creatinine remains above 2. His glomerular filtration rate is 33. He has not had any further chest discomfort. His blood pressure has been stable although this morning it has gone up somewhat. He remains on low-dose aspirin, statin, RANDEE inhibitor, Coreg and Imdur. He is on full dose Lovenox. Medications: Reviewed: Yes Vitals/I&O/Wt Last Vital Signs Temp 98.1 F 08/01/19 06:10 Pulse 74 08/01/19 06:20 Resp 13 08/01/19 06:10 BP 114/58 08/01/19 06:25 Pulse Ox 96 07/31/19 23:45 07/31/19 07/31/19 08/01/19 14:59 22:59 06:59 Intake Total 480 / 480 480 / 960 Output Total 1000 / 1000 Balance 480 / 480 480 / 960 -1000 / -40 Weight last 48 hrs Weight 240 lb Physical Exam Narrative: EXAM NARRATIVE: GENERAL: In general he looks and feels well this morning HEENT: Exam within normal limits. NECK: Supple without jugular vein distention. The carotid upstroke is normal without bruits. BACK: Exam normal. LUNGS: Clear. HEART: Regular rate and rhythm. ABDOMEN: Benign without organomegaly or tenderness. EXTREMITIES: No edema. NEUROLOGIC: Exam normal. SKIN: Unremarkable. Data : 08/01/19 03:13 08/01/19 03:13 A&P Assessment and plan (1) Chronic kidney disease (CKD): Status: Acute Code(s): N18.9 - Chronic kidney disease, unspecified (2) Dyslipidemia: Status: Acute Code(s): E78.5 - Hyperlipidemia, unspecified (3) Diabetic peripheral neuropathy: Status: Acute Code(s): E11.42 - Type 2 diabetes mellitus with diabetic polyneuropathy (4) Hypertensive urgency: Status: Acute Code(s): I16.0 - Hypertensive urgency (5) Type 2 diabetes mellitus: Status: Acute Code(s): E11.9 - Type 2 diabetes mellitus without complications (6) Chest pain: Status: Acute Qualifiers: Chest pain type: precordial pain Qualified Code(s): R07.2 - Precordial pain Code(s): R07.9 - Chest pain, unspecified Additional A&P Information I do not think he needs any further cardiac testing. Angiography would not be indicated given his negative stress test and his glomerular filtration rate near 30 mL/min. I think he can be treated medically for his underlying illnesses. He should be able to go home today. He told me that his mother has to come from [facility] to pick him up. I would discontinue the Lovenox. He should go home on low-dose aspirin, statin, RANDEE inhibitor and Coreg. I do not have a strong feeling about the Imdur. I would probably leave it off. He can follow-up with his physicians in the [place] area. 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
[2019-08-01] MEDS: atorvastatin 40 mg Tablet PO (08:11)
[2019-08-01] MEDS: carvedilol 6.25 mg Tablet PO ×2 (08:11→22:02)
[2019-08-01] MEDS: aspirin 81 mg EC Tablet PO (08:11)
[2019-08-01] MEDS: isosorbide mononitrate ER 30 mg Tablet PO (08:12)
[2019-08-01] MEDS: gabapentin 400 mg Capsule 800 MG PO ×3 (08:12→22:01)
[2019-08-01] MEDS: lisinopril 20 mg Tablet PO (08:14)
[2019-08-01] MEDS: HYDROcodone-acetaminophen 5-325 mg Tablet 1 TAB PO ×3 (08:28→22:02)
--- NOTE | 2019-08-01 08:48 | P.PN_ITS ---
Subjective Subjective: Interval history: No acute events overnight. On examination this morning patient denies chest pain or shortness of breath, nausea, vomiting, palpitations but reports back pain, thoracic and low back which is chronic. Medications: Medication Review Details: Lantus 35 units in the morning, 30 units at night Novolin sliding scale Lisinopril 10 mg once daily Glipizide 10 mg once daily Gabapentin 800 3 times daily [place] 10/26/2024 every 4 as needed Vitals/I&O/Wt Last Vital Signs Temp 98.3 F 08/01/19 07:29 Pulse 74 08/01/19 07:29 Resp 18 08/01/19 07:29 BP 142/75 08/01/19 07:29 Pulse Ox 95 08/01/19 07:29 07/31/19 08/01/19 08/01/19 22:59 06:59 14:59 Intake Total 480 / 960 Output Total 1000 / 1000 Balance 480 / 960 -1000 / -40 Weight last 48 hrs Weight 108.862 kg Physical Exam Narrative: EXAM NARRATIVE: General: No acute distress, AO x3 HEENT: PERRLA, pupils bilaterally equal and reactive Chest: Normal vesicular breath sounds, no added sounds, equal good air entry bilaterally CVS: S1-S2 regular, no murmurs, no tachycardia, no gallops, no rubs Abdomen: Soft, nontender, no organomegaly, bowel sounds present Neuro: No focal deficits, no facial deformity, AO x3, power 5/5 in all limbs Data : 08/01/19 03:13 08/01/19 03:13 A&P Assessment and plan (1) Chest pain: Stress test done yesterday not suggestive of active ischemia. Cardiology recommendations appreciated. No need for any active further cardiology work-up. Continue with aspirin, statin, beta-shankar, RANDEE inhibitor. Status: Acute Qualifiers: Chest pain type: precordial pain Qualified Code(s): R07.2 - Precordial pain Code(s): R07.9 - Chest pain, unspecified (2) Type 2 diabetes mellitus: -Patient getting Levemir 30 mill units twice daily. Overall patient had received around 22 units of insulin in last 24 hours over the Levemir. Patient recently lost his job and insurance so affordability has been issue. We will consult case management for affordability of medications. Status: Acute Code(s): E11.9 - Type 2 diabetes mellitus without complications (3) Hypertensive urgency: Status: Acute Code(s): I16.0 - Hypertensive urgency (4) Diabetic peripheral neuropathy: Continue with gabapentin 800 mg 3 times daily PT/OT Status: Acute Code(s): E11.42 - Type 2 diabetes mellitus with diabetic polyneuropathy Additional A&P Information Hypertension: Patient's blood pressure yesterday after Imdur was on lower side. Case discussed with Dr. Blood. We will stop Imdur. Will decrease lisinopril to 10 mg daily from 20 mg. Continue with current dose of carvedilol. We will monitor blood pressures and for next 24 hours given the adjusted medications. Full code Lovenox at DVT prophylaxis dose. Cardiac carbohydrate consistent diet. 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
[2019-08-01 11:29] LABS: Glucose Point of Care 234 mg/dL (70-110)
[2019-08-01 16:19] LABS: Glucose Point of Care 167 mg/dL (70-110)
[2019-08-01] MEDS: enoxaparin 40 mg/0.4 mL Syringe SUBCUT (17:48)
[2019-08-01 21:23] LABS: Glucose Point of Care 206 mg/dL (70-110)
[2019-08-02] VITALS: BP 143/72; PULSE 76; RESP 16; TEMP 36.8; O2SAT 96
[2019-08-02 03:29] LABS: Basophils % 0.5 %; Eosinophils # 0.2 10^3/uL (0.0-0.8); Eosinophils % 3.1 %; Hematocrit 28.8 % (42.0-52.0); Hemoglobin 9.3 g/dL (11.7-16.6); Lymphocytes # 1.9 10^3/uL (0.8-4.8); Mean Corpuscular HGB Conc 32.3 g/dL (30.0-36.0); Mean Corpuscular Hemoglobin 28.9 pg (28.0-34.0); Mean Corpuscular Volume 89.4 fL (80-94); Mean Platelet Volume 11.4 fL (7.4-10.4); Monocytes # 0.5 10^3/uL (0.2-0.9); Monocytes % 7.1 %; Neutrophils # 3.8 10^3/uL (1.8-7.7); Nucleated Red Blood Cells % 0 %; Platelet Count 188 10^3/cmm (130-400); Red Blood Count 3.22 10^6/uL (4.1-5.3); Red Cell Distribution Width 12.5 % (12.1-15.1); White Blood Count 6.4 10^3/uL (4.0-10.0)
[2019-08-02 03:51] LABS: Alanine Aminotransferase 15 U/L (0-41); Albumin Level 2.3 g/dL (3.5-5.2); Alkaline Phosphatase 50 IU/L (40-130); Anion Gap 12.1 (5-19); Aspartate Amino Transferase 20 U/L (0-40); Blood Urea Nitrogen 17 mg/dL (6-20); Calcium 8.9 mg/dL (8.5-10.5); Carbon Dioxide 27 mmol/L (22-29); Chloride 98 mmol/L (98-107); Globulin 3.4 g/dL (1.3-4.6); Glomerular Filtration Rate 37.7 mL/min (90-130); Glucose 226 mg/dL (65-115); Magnesium 1.9 mg/dL (1.7-2.3); Phosphorus 4.2 mg/dL (2.5-4.5); Potassium 4.1 mmol/L (3.5-5.1); Sodium 133 mmol/L (136-145); Total Bilirubin 0.2 mg/dL (0.15-1.2); Total Protein 5.7 g/dL (6.6-8.7)
[2019-08-02 04:00] VITALS: BP 149/77; PULSE 65; RESP 12; TEMP 36.7; O2SAT 97
[2019-08-02] MEDS: HYDROcodone-acetaminophen 5-325 mg Tablet 1 TAB PO ×3 (04:03→16:11)
[2019-08-02 06:56] LABS: Glucose Point of Care 184 mg/dL (70-110)
[2019-08-02 07:28] VITALS: BP 165/97; PULSE 66; RESP 17; TEMP 36.8; O2SAT 94
[2019-08-02] MEDS: aspirin 81 mg EC Tablet PO (08:57)
[2019-08-02] MEDS: carvedilol 6.25 mg Tablet PO (08:57)
[2019-08-02] MEDS: atorvastatin 40 mg Tablet PO (08:57)
[2019-08-02] MEDS: gabapentin 400 mg Capsule 800 MG PO ×2 (08:58→14:36)
--- NOTE | 2019-08-02 09:56 | PM.DCS ---
Discharge Providers Date of Admission: 07/30/19 23:21 Date of Discharge: Date of Discharge: August 02, 2019 Attending Provider at Admission: Kvng Prado MD Attending Provider at Discharge: Yong Yepez MD Primary Care Provider: Lázaro Rothman Diagnoses at Discharge Discharge Diagnosis (1) Chest pain: Status: Acute Qualifiers: Chest pain type: precordial pain Qualified Code(s): R07.2 - Precordial pain (2) Type 2 diabetes mellitus: Status: Acute (3) Hypertensive urgency: Status: Acute (4) Diabetic peripheral neuropathy: Status: Acute Reason for Visit Reason for Visit: Reason For Visit: Chest Pain Hospital Course Discharge Summary: Nhan Villalba is a 48 year old male with a past medical history of hypertension, insulin-dependent type 2 diabetes mellitus, diabetic peripheral neuropathy, chronic back pain with sciatica who presented to the emergency room on 07/30/19 due to chest pain, elevated blood sugars and elevated blood pressures. Patient states that this morning he had episodes of substernal chest pain, lasting a few minutes, pressure-like, radiating to his back, associate with shortness of breath, no lightheadedness, no dizziness, no nausea, no vomiting, no diaphoresis, has a history of chest pain in the past, has not seen his physician about this, has never had a stress test, no history of CAD or coronary intervention, no history of CABG, does have family history of CAD in his mother and father. Patient states that he recently moved to [facility] from [facility], he states that he has been out of his medications for the past week, currently living with friends, currently unemployed, he is working on his Medicaid for disability. Due to severe family history patient was admitted to cardiac stepdown unit for chest pain rule out. Cardiac stress test Lexiscan on July 30 which was not suggestive of any active ischemia. As patient has not been on any antidiabetic or antihypertensive medications prior to admission due to financial problems his medications were readjusted. information services vice president were consulted to help with medication. Patient was started on RANDEE inhibitor and beta-shankar for blood pressures. His insulins were adjusted for his blood sugars. He responded well to the treatment. Medications were provided to him by [facility] pharmacy and I have also prescribed 2 refills from [facility] pharmacies. Patient is to be followed up with his primary care physician within next 7 to 10 days and has been discharged in hemodynamically stable condition. Physical Exam Narrative: EXAM NARRATIVE: General: No acute distress, AO x3 HEENT: PERRLA, pupils bilaterally equal and reactive Chest: Normal vesicular breath sounds, no added sounds, equal good air entry bilaterally CVS: S1-S2 regular, no murmurs, no tachycardia, no gallops, no rubs Abdomen: Soft, nontender, no organomegaly, bowel sounds present Neuro: No focal deficits, no facial deformity, AO x3, power 5/5 in all limbs Discharge Data Data Completed and Pending: Completed Studies During Hospitalization Category Date Time Status Sestamibi Stress Test Request Routi ne Exams 07/30/19 23:48 Completed XR chest 1V jackie ble [id number] Stat Exams 07/30/19 19:25 Completed NM solomon perf SPECT r/s* [id number] Routin e Nuc Med 07/31/19 23:48 Completed Pending at discharge Category Date Time Status Arterial Blood Ga s W/O Coox Routine Lab 07/30/19 19:26 Ordered Labs from last 24 hours 08/02/19 08/02/19 08/02/19 06:47 02:54 02:54 WBC 6.4 RBC 3.22 L Hgb 9.3 L Hct 28.8 L MCV 89.4 MCH 28.9 MCHC 32.3 RDW 12.5 Plt Count 188 MPV 11.4 H Neut % (Auto) 60.0 Lymph % (Auto) 29.0 [place] % (Auto) 7.1 Eos % (Auto) 3.1 Baso % (Auto) 0.5 Neut # (Auto) 3.8 Lymph # (Auto) 1.9 [place] # (Auto) 0.5 Eos # (Auto) 0.2 Baso # (Auto) 0.0 Nucleated RBC % (a uto) 0 Nucleated RBCs # 0.0 Sodium 133 L Potassium 4.1 Chloride 98 Carbon Dioxide 27 Anion Gap 12.1 BUN 17 Creatinine 1.9 H GFR Calculation 37.7 L Glucose 226 H POC Glucose 184 Calcium 8.9 Phosphorus 4.2 Magnesium 1.9 Total Bilirubin 0.2 AST 20 ALT 15 Alkaline Phosphata se 50 Total Protein 5.7 L Albumin 2.3 L Globulin 3.4 08/01/19 08/01/19 08/01/19 20:54 15:48 11:12 WBC RBC Hgb Hct MCV MCH MCHC RDW Plt Count MPV Neut % (Auto) Lymph % (Auto) [place] % (Auto) Eos % (Auto) Baso % (Auto) Neut # (Auto) Lymph # (Auto) [place] # (Auto) Eos # (Auto) Baso # (Auto) Nucleated RBC % (a uto) Nucleated RBCs # Sodium Potassium Chloride Carbon Dioxide Anion Gap BUN Creatinine GFR Calculation Glucose POC Glucose 206 167 234 Calcium Phosphorus Magnesium Total Bilirubin AST ALT Alkaline Phosphata se Total Protein Albumin Globulin Vitals: Last Vital Signs Temp 98.2 F 08/02/19 07:28 Pulse 66 08/02/19 07:28 Resp 17 08/02/19 07:28 BP 165/97 08/02/19 07:28 Pulse Ox 94 08/02/19 07:28 Discharge Plan Discharge Patient Disposition: Home, Self-Care Condition: Stable Prescriptions: New atorvastatin 40 mg Tablet 40 mg PO DAILY Qty: 30 RF: 2 carvedilol 6.25 mg Tablet 6.25 mg PO BID Qty: 60 RF: 2 aspirin 81 mg Tablet,Delayed Release (Dr/Ec) 81 mg PO DAILY Qty: 30 RF: 2 Novolog U-100 Insulin aspart 100 unit/mL Solution 5 unit SUBCUT TIDWM Qty: 5 RF: 0 Continued hydrocodone-acetaminophen 5-325 mg tablet 1 - 2 tab PO 6XD PRN (Reason: Pain) RF: 0 gabapentin 800 mg tablet 800 mg PO TID Qty: 30 RF: 0 lisinopril 10 mg tablet 10 mg PO DAILY Qty: 30 RF: 2 Changed Lantus U-100 Insulin 30 unit SUBCUT BIDPC Qty: 300 RF: 2 Discontinued insulin lispro [Humalog KwikPen Insulin] 100 unit/mL insulin pen 1 unit SUBCUT TID RF: 0 Discharge Orders: Discharge Order (Routine); Ordered 08/02/19 Ordered By: Yong Yepez Referrals: Luisito Rothman MD [Primary Care Provider] - 7-10 days (You have a hospital follow up appointment with Dr. Rothman on Monday, August 12, at 10:00am. If you have any questions or concerns please call the [facility]. ) Discharge Diet: Cardiac and Diabetic Discharge Activity: Resume usual activity Patient Instructions: Type 2 Diabetes, Diabetes and Diet, Aspirin (By mouth), Atorvastatin (By mouth), Carvedilol (By mouth), Chest Pain (DC), Chest Pain Stoplight Activity Restrictions/Additional Instructions: Take your medications as prescribed. Discharge Attestations Time Spent in Discharge Care*: greater than 30 min Specific Discharge Activities: Specific discharge activities: educating patient and discussing with supervisor case loading/social workers/dc planners Status at Discharge: Cognitive status at discharge: cognitively intact, Behavioral status at discharge: cooperative, Functional status at discharge: independent ambulation Overall status at discharge: patient is back to baseline Quality Metrics Clinical Quality Measures During this hospital stay, did patient experience: None Coding Level of Care Code Acute Instructional Support Specialist for [facility] Diagnoses Chest pain R07.2 Chest pain type: precordial pain Type 2 diabetes mellitus E11.9 Hypertensive urgency I16.0 Diabetic peripheral neuropathy E11.42
[2019-08-02 11:16] VITALS: BP 163/83; PULSE 72; RESP 20; O2SAT 96
[2019-08-02 11:41] LABS: Glucose Point of Care 241 mg/dL (70-110)
--- NOTE | 2019-08-02 12:00 | PC.NURSE ---
Called Rx to [facility] pharmacy Set-up transportation with [employer]. case mgt is setting up the transport. All new and home meds are called in an e-rx to pharmacy.
[2019-08-02] MEDS: lisinopril 10 mg Tablet PO ×2 (13:33→16:50)
[2019-08-02 15:12] VITALS: BP 133/88; PULSE 87; RESP 16; O2SAT 96
== END 2019-08-02 16:51 | disposition home or self-care (01) ==
LOC: ER 23:37 → CSU 23:41
PROVIDERS: Internal Medicine; Admitting Provider Family Medicine; Emergency Provider Emergency Medicine; Family Provider Family Medicine; PCP Family Medicine; Visit Provider Student in an Organized Health Care Education/Training Program
DX: R07.2 Precordial pain (principal); I16.0 Hypertensive urgency; E11.42 Type 2 diabetes mellitus with diabetic polyneuropathy; E78.5 Hyperlipidemia, unspecified; E11.22 Type 2 diabetes mellitus with diabetic chronic kidney disease; I12.9 Hypertensive chronic kidney disease with stage 1 through stage 4 chronic kidney disease, or unspecified chronic kidney disease; N18.9 Chronic kidney disease, unspecified; Z82.49 Family history of ischemic heart disease and other diseases of the circulatory system; Z83.3 Family history of diabetes mellitus; Z79.891 Long term (current) use of opiate analgesic
CPT/HCPCS: 12345; 36415; 36416; 71045; 78452; 80053; 80061; 82009; 82550; 82962; 83036; 83690; 83735; 84100; 84443; 84484; 85025; 93005; 93017; 96360; 96361; 96372; 96374; 96375; 99282; 99285; A9500; G0378; J0280; J1650; J1815; J2785; J7030; J7799